=== PATIENT | male | born 1990 | race Hispanic/Latino ===

== ENCOUNTER 2021-01-10 13:32 | Emergency (ER) | payer SELFPAY ==
[2021-01-10 16:12] VITALS: BP 160/79
--- NOTE | 2021-01-10 17:31 | Emergency Department Report ---
ED General Adult HPI - General Chief complaint: Dental/Oral Stated complaint: LT CHEEK SWELLING TENDERNESS Time Seen by Provider: 01/10/21 17:12 Source: patient Mode of arrival: Ambulatory Limitations: No Limitations - History of Present Illness Initial comments: 30-year-old male patient with history of sialolithiasis presents to the emergency department with complaints of nontraumatic swelling of his left cheek starting yesterday. Patient states onset of swelling was preceded by dental pain involving the left lower molar, which has resolved. Took an negl-[id number] pain medication with some relief. He is not currently under the care of a dentist or an ENT specialist. Denies fever, chills, dysphagia, wheezing, hoarseness, purulent drainage. Denies all other complaints at this time. Severity scale (0 -10): 5 - Related Data Previous Rx's Medication Instructions Recorded Last Taken Type Naproxen 500 mg PO BID #20 tablet 01/10/21 Unknown Rx cephALEXin [Keflex] 500 mg PO Q6HR 7 Days capsule 01/10/21 Unknown Rx Allergies Allergy/AdvReac Type Severity Reaction Status Date / Time No Known Allergies Allergy Unverified 01/10/21 16:08 ED Review of Systems ROS: Stated complaint: LT CHEEK SWELLING TENDERNESS Other details as noted in HPI Other: GENERAL: Negative for fever. ENT: Positive for dental pain and facial swelling. CARDIOVASCULAR: Negative for chest pain. PULMONARY: Negative for shortness of breath. GASTROINTESTINAL: Negative for abdominal pain. MUSCULOSKELETAL: Negative for back pain. NEUROLOGICAL: Negative for headache. INTEGUMENTARY: Negative for rash. ED Past Medical Hx - Past Medical History Previous Medical History?: No - Surgical History Past Surgical History?: No - Medications Home Medications: Home Medications Medication Instructions Recorded Confirmed Last Taken Type Naproxen 500 mg PO BID #20 tablet 01/10/21 Unknown Rx cephALEXin [Keflex] 500 mg PO Q6HR 7 Days capsule 01/10/21 Unknown Rx ED Physical Exam - General Limitations: No Limitations - Other Other exam information: General: Awake, appropriately interactive, no acute distress. ENT: Oral mucosa is moist. The gingiva appear normal. Tenderness to palpation along the left lower molars with significant decay. No fluctuance or evidence of periapical abscess. Sublingual, submental, and submandibular spaces all soft. There is swelling to the left cheek without overlying warmth or erythema. No fluctuance. No trismus. Patient is speaking in full sentences and handling secretions without difficulty. Neck: Supple. Full range of motion intact. Cardiovascular: Normal peripheral perfusion. Pulmonary: No respiratory distress. Patient is speaking normally without use of accessory muscles. Skin: No apparent rashes or lesions. Neurological: No facial asymmetry. Speech is clear. Follows commands. Patient is alert and oriented. Musculoskeletal: Moves all four extremities spontaneously with normal range of motion. Psych: Cooperative. Appropriate mood and affect. ED Course Vital Signs 01/10/21 16:10 Temperature 98.8 F Pulse Rate 85 Respiratory 18 Rate Blood Pressure 160/79 [Right] O2 Sat by Pulse 99 Oximetry ED Medical Decision Making - Medical Decision Making Differential diagnosis including but not limited to: dental abscess, Azam's angina, necrotizing gingivitis, dental caries, sialoadenitis, sialolithiasis Patient presents to the emergency department with complaints of left-sided facial swelling in the setting of left lower molar dental caries. Patient also has a history of sialolithiasis. Patient is afebrile, hemodynamically stable, no hypoxia, no respiratory distress, handling secretions without difficulty, speaking without difficulty. No clinical evidence to suggest airway obstruction or severe bacterial infection warranting further diagnostic work-up on an emergent basis. Patient will be discharged home with Keflex to cover both dental prophylaxis as well as possible concomitant early salivary gland infection. Encouraged patient to use sialagogues and follow-up with ENT specialist as well as dentist for definitive management. Patient expressed understanding and is agreeable to plan of care. Strict return precautions prov ided. History, exam, diagnostic testing, and current condition do not suggest worrisome pathology to warrant further testing, continued ED treatment, admission, or surgical evaluation at this point. Given the low probability of a significant medical illness, it would be more likely to result in harm than benefit to perform further testing at this stage. Discussed findings, presumptive diagnosis, need for follow-up and specific signs/symptoms that should prompt immediate return to the emergency department. Instructions were explained in detail to the patient in addition to giving written discharge information. Patient expressed understanding and was given the opportunity to ask questions, all of which were satisfactorily answered prior to discharge home. Critical care attestation.: If time is entered above; I have spent that time in minutes in the direct care of this critically ill patient, excluding procedure time. ED Disposition Clinical Impression: Dental caries Disposition: DC-01 TO HOME OR SELFCARE Is pt being admited?: No Does the pt Need Aspirin: No Condition: Stable Instructions: Preventive Dental Care, Adult Additional Instructions: Take Tylenol every 4 hours as needed for pain. Take Naprosyn twice daily with food as needed for pain/swelling. Take Keflex with food as directed. Increase your dietary intake of probiotic rich foods while taking this medication. Apply moist heat to the involved area. Tart hard sour candies may be used to help to promote salivary flow. Follow-up with dentist and ENT specialist this week. Call tomorrow to schedule an appointment. See referral information below. Return to the emergency department immediately for new or worsening symptoms. Prescriptions: cephALEXin [Keflex] 500 mg PO Q6HR 7 Days capsule Naproxen 500 mg PO BID #20 tablet Referrals: HAL BERNAL MD [Staff Physician] - 3-5 Days [facility] [Outside] - 3-5 Days Time of Disposition: 17:32
== END 2021-01-10 17:40 | disposition home or self-care (01) ==
LOC: ED 13:32
DX: K02.9 Dental caries, unspecified (principal); Z79.899 Other long term (current) drug therapy
CPT/HCPCS: 99281

== ENCOUNTER 2021-07-18 13:29 | Emergency (ER) | payer SELFPAY ==
[2021-07-18 16:18] VITALS: BP 127/57
[2021-07-18] MEDS ORDERED: KETOROLAC 60 MG/2 ML INJ IM ONE (16:56)
--- NOTE | 2021-07-18 17:01 | Emergency Department Report ---
ED Back Pain/Injury HPI - General Chief Complaint: Back Pain/Injury Stated Complaint: BACK PAIN Time Seen by Provider: 07/18/21 16:29 Source: patient Mode of arrival: Ambulatory Limitations: No Limitations - History of Present Illness Initial Comments: Patient is a 31-year-old male presents emergency with complaints of acute on chronic low back pain for 2 weeks. Patient states he has a history of a herniated disc at L5. He states he was [place] clinical documentation [place] but has not seen one since he moved here. He states he is currently seeing a chiropractor. He denies any acute fall or injury. He denies any numbness, weakness, bowel or bladder incontinence, fever. Patient denies any other past medical history. No allergies medications. Patient is also requesting to have [facility] paperwork filled out. - Related Data Previous Rx's Medication Instructions Recorded Last Taken Type Naproxen 500 mg PO BID #20 tablet 01/10/21 Unknown Rx cephALEXin [Keflex] 500 mg PO Q6HR 7 Days capsule 01/10/21 Unknown Rx methOCARBAMOL [Robaxin TAB] 500 mg PO BID PRN #14 tab 07/18/21 Unknown Rx Allergies Allergy/AdvReac Type Severity Reaction Status Date / Time No Known Allergies Allergy Unverified 01/10/21 16:08 ED Review of Systems ROS: Stated complaint: BACK PAIN Other details as noted in HPI Comment: All other systems reviewed and negative ED Past Medical Hx - Medications Home Medications: Home Medications Medication Instructions Recorded Confirmed Last Taken Type Naproxen 500 mg PO BID #20 tablet 01/10/21 Unknown Rx cephALEXin [Keflex] 500 mg PO Q6HR 7 Days capsule 01/10/21 Unknown Rx methOCARBAMOL [Robaxin TAB] 500 mg PO BID PRN #14 tab 07/18/21 Unknown Rx ED Physical Exam - General Limitations: No Limitations General appearance: alert, in no apparent distress - Head Head exam: Present: atraumatic, normocephalic - Eye Eye exam: Present: normal appearance - ENT ENT exam: Present: mucous membranes moist - Respiratory Respiratory exam: Present: normal lung sounds bilaterally. Absent: respiratory distress, wheezes, rales, rhonchi, stridor, chest wall tenderness, accessory muscle use, decreased breath sounds, prolonged expiratory - Cardiovascular Cardiovascular Exam: Present: regular rate, normal rhythm, normal heart sounds. Absent: systolic murmur, diastolic murmur, rubs, gallop - Back Exam Back exam: Present: normal inspection, full ROM. Absent: paraspinal tenderness, vertebral tenderness - Neurological Exam Neurological exam: Present: alert, oriented X3, CN II-XII intact, normal gait. Absent: motor sensory deficit - Psychiatric Psychiatric exam: Present: normal affect, normal mood - Skin Skin exam: Present: warm, dry, intact ED Course Vital Signs 07/18/21 16:13 Temperature 98.5 F Pulse Rate 88 Respiratory 17 Rate Blood Pressure 127/57 O2 Sat by Pulse 98 Oximetry ED Medical Decision Making - Medical Decision Making Patient is a 31-year-old male presents emergency with complaints of acute on chronic low back pain for 2 weeks. Patient states he has a history of a herniated disc at L5. He states he was [place] clinical documentation [place] but has not seen one since he moved here. He states he is currently seeing a chiropractor. He denies any acute fall or injury. He denies any numbness, weakness, bowel or bladder incontinence, fever. Patient denies any other past medical history. No allergies medications. Patient is also requesting to have FMLA paperwork filled out. Vitals are normal. Patient has no midline spinal or paraspinal tenderness ttp, no step-offs, no deformities, no focal neuro deficits, patient is ambulatory without difficulty. Patient has no red flag warning signs of back pain at this time, no trauma, no unexplained weight loss, no neuro deficits, age is not greater than 50, no IV drug use, no steroid use, no history of cancer. Patient given Toradol IM on the emergency department. Patient given prescription for medication. Discussed the importance of outpatient primary care and neurosurgery follow-up. Advised patient that we do not fill out FMLA paperwork in the emergency department as this needs to be done outpatient. advised pt please take medication as prescribed as needed. Follow-up with your primary care doctor. Follow-up with neurosurgeon. Return to emergency room for any new or worsening symptoms. FMLA paperwork will have to be performed by primary care or neurosurgeon. Critical care attestation.: If time is entered above; I have spent that time in minutes in the direct care of this critically ill patient, excluding procedure time. ED Disposition Clinical Impression: Low back pain Qualifiers: Chronicity: acute Back pain laterality: unspecified Sciatica presence: without sciatica Qualified Code(s): M54.50 - Low back pain, unspecified Disposition: 01 HOME / SELF CARE / HOMELESS Is pt being admited?: No Does the pt Need Aspirin: No Condition: Stable Instructions: Acute Back Pain, Adult Additional Instructions: Please take medication as prescribed as needed. Follow-up with your primary care doctor. Follow-up with neurosurgeon. Return to emergency room for any new or worsening symptoms. FMLA paperwork will have to be performed by primary care or neurosurgeon. Prescriptions: methOCARBAMOL [Robaxin TAB] 500 mg PO BID PRN #14 tab PRN Reason: muscle spasm/pain Referrals: MARCELO ALLAN MD [Staff Physician] - 3-5 Days [facility] [Provider Group] - 3-5 Days DENIS ROJAS II, MD [Staff Physician] - 3-5 Days (neurosurgeon ) Time of Disposition: 17:00 Print Language: SALVADOREAN
[2021-07-18] MEDS ORDERED: KETOROLAC 30 MG/1 ML INJ ONE (17:06)
== END 2021-07-18 18:27 | disposition home or self-care (01) ==
LOC: ED 13:29
DX: M54.50 Low back pain, unspecified (principal)
CPT/HCPCS: 96372; 99281; J1885

== ENCOUNTER 2022-03-18 11:54 | Emergency (ER) | payer SELFPAY ==
--- NOTE | 2022-03-18 12:08 | Event Note ---
ED Screening Note Date of service: 03/18/22 Time: 12:08 ED Screening Note: 31 Y M reports to ER with c/O elevated BP with no hx of HTN. patient reports " funny and shaky at home" no chest pain but SOB . dizziness reported. This initial assessment/diagnostic orders/clinical plan/treatment(s) is/are subject to change based on patients health status, clinical progression and re- assessment by fellow clinical providers in the ED. Further treatment and workup at subsequent clinical providers discretion. Patient/guardian urged not to elope from the ED as their condition may be serious if not clinically assessed and managed. Initial orders include: Active Orders 24 hr Category Date Time Status EKG (12 lead) Stat Cardiology 03/18/22 12:06 Ordered Tech to do EKG .once Care 03/18/22 12:07 Ordered Complete Blood Count Auto Diff Stat Lab 03/18/22 12:06 Ordered Comprehensive Metabolic Panel Stat Lab 03/18/22 12:06 Ordered XR chest 1V ap Stat X-Ray 03/18/22 12:06 Ordered
--- NOTE | 2022-03-18 12:39 | XRay Report ---
CHEST 1 VIEW 03/18/2022 12:31 PM INDICATION / CLINICAL INFORMATION: SOb. COMPARISON: None available. FINDINGS: SUPPORT DEVICES: None. HEART / MEDIASTINUM: No significant abnormality. LUNGS / PLEURA: No significant pulmonary or pleural abnormality. No pneumothorax. ADDITIONAL FINDINGS: No significant additional findings. IMPRESSION: 1. No acute findings. Signer Name: Joey Herrera MD Signed: 03/18/2022 12:35 PM Workstation Name: [id number]
[2022-03-18 12:50] LABS: Basophils # (Auto) 0.1 K/mm3 (0.0-0.1); Basophils % (Auto) 0.7 % (0.0-1.8); Eosinophils # (Auto) 0.4 K/mm3 (0.0-0.4); Eosinophils % (Auto) 4.1 % (0.0-4.3); Hematocrit 53.5 % (35.5-45.6); Hemoglobin 18.3 gm/dl (11.8-15.2); Lymphocytes # (Auto) 2.5 K/mm3 (1.2-5.4); Lymphocytes % (Auto) 26.7 % (13.4-35.0); Mean Corpuscular HGB Conc 34 % (32-34); Mean Corpuscular Volume 82 fl (84-94); Monocytes # (Auto) 0.4 K/mm3 (0.0-0.8); Monocytes % (Auto) 4.7 % (0.0-7.3); Platelet Count 238 K/mm3 (140-440); Red Blood Count 6.49 M/mm3 (3.65-5.03); Red Cell Distribution Width 15.8 % (13.2-15.2)
[2022-03-18 13:30] LABS: Alanine Aminotransferase 45 units/L (7-56); BUN/Creatinine Ratio 15; Blood Urea Nitrogen 17 mg/dL (9-20); Calcium 9.8 mg/dL (8.4-10.2); Hemolysis Index 12
[2022-03-18] MEDS ORDERED: SODIUM CHLORIDE 0.9% 1000 ML 1,000 ML IV ONE (21:59)
--- NOTE | 2022-03-18 22:05 | Emergency Department Report ---
ED General Adult HPI - General Chief complaint: Dizziness Stated complaint: HBP Time Seen by Provider: 03/18/22 21:57 Source: patient Mode of arrival: Ambulatory Limitations: No Limitations - History of Present Illness Initial comments: Patient is a 31 Y/O M reports to ER with c/O elevated BP with no hx of HTN. patient reports " funny and shaky at home" no chest pain but SOB . dizziness reported. Patient states she has been on Suboxone therapy for the past 5 years and is attempting to wean this off. Patient denies other symptoms of withdrawal, there is no SI no HI no shortness of breath no diaphoresis. Patient states tolerating p.o. intake. Denies other stressors. States stress level is 5/10 at this time. Severity scale (0 -10): 0 - Related Data Previous Rx's Medication Instructions Recorded Last Taken Type Naproxen 500 mg PO BID #20 tablet 01/10/21 Unknown Rx cephALEXin [Keflex] 500 mg PO Q6HR 7 Days capsule 01/10/21 Unknown Rx methOCARBAMOL [Robaxin TAB] 500 mg PO BID PRN #14 tab 07/18/21 Unknown Rx diphenhydrAMINE [Benadryl CAP] 25 mg PO Q6HR PRN #30 capsule 03/18/22 Unknown Rx Allergies Allergy/AdvReac Type Severity Reaction Status Date / Time No Known Allergies Allergy Verified 03/18/22 12:18 ED Review of Systems ROS: Stated complaint: HBP Other details as noted in HPI Constitutional: malaise. denies: chills, fever Eyes: denies: eye pain, eye discharge, vision change ENT: denies: ear pain, throat pain Respiratory: denies: cough, shortness of breath, wheezing Cardiovascular: palpitations. denies: chest pain, dyspnea on exertion, paro xysmal nocturnal dyspnea Endocrine: no symptoms reported Gastrointestinal: denies: abdominal pain, nausea, vomiting, diarrhea Genitourinary: as per HPI Musculoskeletal: denies: back pain, joint swelling, arthralgia Skin: denies: rash, lesions Neurological: vertigo. denies: headache, weakness, numbness, paresthesias, confusion Psychiatric: denies: anxiety, depression, visual hallucinations, homicidal thoughts, suicidal thoughts Hematological/Lymphatic: denies: easy bleeding, easy bruising ED Past Medical Hx - Past Medical History Previous Medical History?: No Additional medical history: Suboxone therapyx 5 years - Surgical History Past Surgical History?: No - Medications Home Medications: Home Medications Medication Instructions Recorded Confirmed Last Taken Type Naproxen 500 mg PO BID #20 tablet 01/10/21 Unknown Rx cephALEXin [Keflex] 500 mg PO Q6HR 7 Days capsule 01/10/21 Unknown Rx methOCARBAMOL [Robaxin TAB] 500 mg PO BID PRN #14 tab 07/18/21 Unknown Rx diphenhydrAMINE [Benadryl CAP] 25 mg PO Q6HR PRN #30 capsule 03/18/22 Unknown Rx ED Physical Exam - General Limitations: No Limitations General appearance: alert, in no apparent distress - Head Head exam: Present: normocephalic, normal inspection - Eye Eye exam: Present: PERRL, EOMI Pupils: Present: normal accommodation - ENT ENT exam: Present: mucous membranes moist - Neck Neck exam: Present: normal inspection, full ROM. Absent: tenderness, lymphadenopathy - Respiratory Respiratory exam: Present: normal lung sounds bilaterally. Absent: respiratory distress, wheezes, stridor, chest wall tenderness - Cardiovascular Cardiovascular Exam: Present: regular rate, normal rhythm, normal heart sounds. Absent: systolic murmur, diastolic murmur, rubs, gallop - GI/Abdominal GI/Abdominal exam: Present: soft, normal bowel sounds. Absent: distended, tenderness, guarding, rebound, rigid, bruit, hernia - Rectal Rectal exam: Present: deferred - Extremities Exam Extremities exam: Present: normal inspection, full ROM, normal capillary refill. Absent: pedal edema - Back Exam Back exam: Present: normal inspection, full ROM. Absent: CVA tenderness (R), CVA tenderness (L) - Neurological Exam Neurological exam: Present: alert, oriented X3, CN II-XII intact, normal gait, reflexes normal. Absent: motor sensory deficit - Expanded Neurological Exam Expanded Patient oriented to: Present: person, place, time Speech: Present: fluid speech Cranial nerves: EOM's Intact: Normal Motor strength exam: RUE: 5, LUE: 5, RLE: 5, LLE: 5 Best Eye Response (Annette): (4) open spontaneously Best Motor Response (Annette): (6) obeys commands Best Verbal Response ([place]): (5) oriented [place] Total: 15 - Psychiatric Psychiatric exam: Present: normal affect, normal mood - Skin Skin exam: Present: warm, dry, intact, normal color. Absent: rash ED Course Vital Signs 03/18/22 03/18/22 12:14 19:39 Temperature 98.3 F 98.4 F Pulse Rate 105 H 74 Respiratory 16 20 Rate Blood Pressure 119/73 Blood Pressure 141/94 [Right] O2 Sat by Pulse 100 100 Oximetry ED Medical Decision Making - Lab Data Result diagrams: 03/18/22 12:11 03/18/22 12:11 Labs 03/18/22 03/18/22 12:11 12:11 WBC 9.4 RBC 6.49 H Hgb 18.3 H Hct 53.5 H MCV 82 L MCH 28 MCHC 34 RDW 15.8 H Plt Count 238 Lymph % (Auto) 26.7 [place] % (Auto) 4.7 Eos % (Auto) 4.1 Baso % (Auto) 0.7 Lymph # (Auto) 2.5 [place] # (Auto) 0.4 Eos # (Auto) 0.4 Baso # (Auto) 0.1 Seg Neutrophils % 63.8 Seg Neutrophils # 6.0 Sodium 138 Potassium 4.5 Chloride 100.6 Carbon Dioxide 22 Anion Gap 20 BUN 17 Creatinine 1.1 Estimated GFR > 60 BUN/Creatinine Ratio 15 Glucose 162 H Calcium 9.8 Total Bilirubin 0.40 AST 27 ALT 45 Alkaline Phosphatase 64 Total Protein 7.1 Albumin 5.0 Albumin/Globulin Ratio 2.4 - EKG Data EKG shows normal: sinus rhythm, axis, intervals, QRS complexes Rate: normal - EKG Data When compared to previous EKG there are: previous EKG unavailable Interpretation: other (Sinus rhythm probable left atrial enlargement, no ST elevation probably normal early repull pattern no ST elevated [place] interpreted by ED attending.) - Radiology Data Radiology results: report reviewed, image reviewed CHEST 1 VIEW 03/18/2022 12:31 PM INDICATION / CLINICAL INFORMATION: SOb. COMPARISON: None available. FINDINGS: SUPPORT DEVICES: None. HEART / MEDIASTINUM: No significant abnormality. LUNGS / PLEURA: No significant pulmonary or pleural abnormality. No pneumothorax. ADDITIONAL FINDINGS: No significant additional findings. IMPRESSION: 1. No acute findings. Signer Name: Yenny Roa MD Signed: 03/18/2022 12:35 PM Workstation Name: [id number] Transcribed By: DEIDRE Dictated By: YENNY ROA MD Electronically Authenticated By: YENNY ROA MD Signed Date/Time: 03/18/22 123 DD/ 34 TD/TT: - Medical Decision Making Patient advises symptoms resolved at this time no palpitations no chest pain no shortness shortness of breath no diaphoresis. Labs noted as above patient treated with normal saline 1 L x 1. Patient denies withdrawal symptoms at this time. Patient will follow-up with Suboxone clinic in AM and discussed weaning with his Suboxone provider. Patient is currently alert oriented x3 ambulatory with steady gait and no acute distress.. Critical care attestation.: If time is entered above; I have spent that time in minutes in the direct care of this critically ill patient, excluding procedure time. ED Disposition Clinical Impression: Palpitations Disposition: 01 HOME / SELF CARE / HOMELESS Is pt being admited?: No Does the pt Need Aspirin: No Condition: Stable Instructions: Palpitations Additional Instructions: Follow-up with Suboxone doctor tomorrow for medically guided bleeding. Take all other medications as prescribed, continue to hydrate as directed. Return to emergency department should symptoms worsen. Prescriptions: diphenhydrAMINE [Benadryl CAP] 25 mg PO Q6HR PRN #30 capsule PRN Reason: dizziness Referrals: JOSE R GOODRICH MD [Staff Physician] - 2-3 Days Forms: Work/School Release Form(ED) Time of Disposition: 23:28
[2022-03-19 00:04] VITALS: BP 126/74
--- NOTE | 2022-03-19 11:46 | Electrocardiograph Report ---
[facility] Test Date: 2022-03-18 Test Time: 13:02:17 Pat Name: PAU HANCOCK Department: Room: Gender: M Manager Hi: AF : 1990 Requested By: TYLOR GILL Order Number: [id number] Reading MD: Fahad Rosenbaum Measurements Intervals [place] Rate: 90 P: 74 SD: 136 QRS: 59 QRSD: 97 T: 69 QT: 337 QTc: 412 Interpretive Statements Sinus rhythm Probable left atrial enlargement ST elev, probable normal early repol pattern No previous ECG available for comparison Electronically Signed On 03-19-2022 11:46:19 EDT by Fahad Rosenbaum
== END 2022-03-19 00:04 | disposition home or self-care (01) ==
LOC: ED 11:54
DX: R00.2 Palpitations (principal)
CPT/HCPCS: 36415; 71045; 80053; 85025; 93005; 96360; 99284; J7030